=== PATIENT | male | born 1995 | race Caucasian/White ===

== ENCOUNTER 2021-06-21 20:16 | Emergency (ER) | payer SELFPAY ==
[~2021-06-21] VITALS: Ht 195.6 cm; Wt 161.0 kg
[2021-06-21] MEDS ORDERED: CLEOCIN HCL300 MG PO (20:41)
[2021-06-21] MEDS ORDERED: DOXYCYCLINE HY100 MG PO (20:41)
[2021-06-21] MEDS ORDERED: IBUPROFEN IB200 MG PO (20:41)
[2021-06-21] MEDS: CLINDAMYCIN PHOS 600 MG/ 4 ML VIAL IM ONE (20:50)
[2021-06-21] MEDS ORDERED: CLINDAMYCIN PHOS 600 MG/ 4 ML VIAL ONE (20:56)
== END 2021-06-21 21:00 | disposition home or self-care (01) ==
LOC: FSED 20:25
DX: L05.91 Pilonidal cyst without abscess (principal)
CPT/HCPCS: 99282

== ENCOUNTER 2022-10-09 10:58 | Emergency (ER) | payer SELFPAY ==
[~2022-10-09] VITALS: Ht 195.6 cm; Wt 169.4 kg
[~2022-10-09 10:58] MED LIST: CLEOCIN HCL300 MG PO; DOXYCYCLINE HY100 MG PO; IBUPROFEN IB200 MG PO
== END 2022-10-09 13:07 | disposition home or self-care (01) ==
LOC: FSED 11:02
DX: S93.402A Sprain of unspecified ligament of left ankle, initial encounter (principal); E66.01 Morbid (severe) obesity due to excess calories; Y93.01 Activity, walking, marching and hiking; X50.1XXA Overexertion from prolonged static or awkward postures, initial encounter; Z68.41 Body mass index [BMI] 40.0-44.9, adult
CPT/HCPCS: 99283